=== PATIENT | male | born 1980 | race Caucasian/White ===

== ENCOUNTER → 2018-02-04 14:11 | Outpatient (CLI) | payer OTHER, SELFPAY ==
--- NOTE | 2018-02-04 14:22 | CT_ITS ---
CT abdomen pelvis wo con CLINICAL INDICATION: Flank pain and hematuria ITS.REASON: HEMATURIA ORDERING PHYSICIAN: Edis Grajeda PATIENT AGE: 37 years COMPARISON: None TECHNIQUE: Axial images obtained with sagittal and coronal reformats. All CT scans at the facility use one or more dose reduction, viz: automated exposure control; ma/kV adjustment per patient size (including targeted exams where dose is matched to indication; i.e. head); or iterative reconstruction technique. PROCEDURE: Oral Contrast: None IV Contrast: None . FINDINGS: No acute finding in the lower chest. Diffuse fatty liver. The spleen, adrenal glands pancreas, and gallbladder have an unremarkable appearance. There are 2 nonobstructing stones in the lower pole the right kidney the largest at 4 mm. No hydronephrosis. No ureteral calculi. Mild amount retained colonic feces noted. Unremarkable appendix. No evidence of intestinal obstruction, free air, or diverticulitis. There are scattered small nodes within the mesentery's There is minimal decrease in height anteriorly involving the T11 vertebral body. This is of questionable clinical significance IMPRESSION: 1. Nonobstructing right nephrolithiasis. 2. Otherwise negative CT abdomen pelvis
== END ==
PROVIDERS: Family Provider Internal Medicine; PCP Internal Medicine; Visit Provider Internal Medicine
DX: R31.9 Hematuria, unspecified (principal)
CPT/HCPCS: 74176

== ENCOUNTER 2019-11-27 22:09 | Emergency (ER) | payer OTHER, SELFPAY ==
[2019-11-27 22:10] VITALS: BMI 35.9
[2019-11-27 22:17] VITALS: BP 149/82; PULSE 90; RESP 16; TEMP 36.8; O2SAT 98; BMI 35.9
--- NOTE | 2019-11-27 22:18 | CT_ITS ---
PROCEDURE: CT ABDOMEN PELVIS WO CON CLINICAL INDICATION: left flank pain Left flank pain, abdominal pain [facility] con [facility] 08/16/[facility] TECHNIQUE: Axial images obtained with sagittal and coronal reformats. All CT scans at the facility use one or more dose reduction, viz: automated exposure control, ma/kV adjustment per patient size (including targeted exams where dose is matched to indication, i.e. head), or iterative reconstruction technique. FINDINGS: LOWER THORAX: No acute finding ABDOMEN & PELVIS: Fatty liver. No focal liver lesion is evident. The spleen, adrenal glands, pancreas, and gallbladder have an unremarkable unenhanced appearance. There is a 5 mm stone in the mid polar region of the right kidney. There is mild left hydronephrosis and hydroureter secondary to a 4 mm stone in the mid to lower left ureter at the pelvic inlet at the L5-S1 level. There are scattered small lymph nodes in the mesenteries which is nonspecific. No evidence of appendicitis. There is a mild amount of retained colonic feces and there is mild nonspecific thickening of the descending and sigmoid colon. There is colonic diverticulosis but no evidence of diverticulitis. No intestinal obstruction or free air. No acute bony anomalies. There is a small umbilical hernia which contains fat. IMPRESSION: 1. 4 mm left mid to distal ureteral stone with mild hydroureteronephrosis. 2. Right nephrolithiasis. 3. Scattered nonspecific areas of thickening of the descending and sigmoid colon which could be due to nondistention or colitis. Dictated by: Cooper Davey MD 11/28/2019 09:46 Electronically signed by Cooper Davey MD in [place] 11/28/2019 09:46
[2019-11-27 22:23] LABS: Microscopic, Urine URINE MICROSCOPIC (MICROSCOPIC)
--- NOTE | 2019-11-27 22:23 | PC.NURSE ---
blood sent to lab
[2019-11-27 22:25] LABS: Appearance,Urine CLEAR (Clear); Blood, Urine 3+ (Negative); Glucose,Urine (UA) Negative (Negative); Ketones,Urine Negative (Negative); Leukocyte Esterase,Urine Negative (Negative); Nitrate,Urine Negative (Negative); Protein,Urine 2+ (Negative); Specific Gravity, Urine >= 1.030 (1.005-1.030)
[2019-11-27 22:27] LABS: Basophils % 0.5 % (0.1-2.0); Eosinophils # 0.1 K/mm3 (0.0-0.4); Eosinophils % 1.9 % (0.1-12.0); Lymphocytes # 2.2 K/mm3 (0.7-4.5); Lymphocytes % 30.2 % (10-50); Mean Corpuscular HGB Conc 33.3 g/dL (31.8-35.4); Mean Corpuscular Hemoglobin 27.6 pg (27.0-31.2); Mean Platelet Volume 8.1 fl (7.4-10.4); Monocytes # 0.4 K/mm3 (0.1-1.0); Monocytes % 5.8 % (1.7-9.3); Neutrophils # 4.5 K/mm3 (1.8-7.8); Neutrophils % 61.6 % (37.0-80.0); Platelet Count 240 K/mm3 (142-424); Red Blood Count 5.42 M/mm3 (4.60-6.20); Red Cell Distribution Width 12.9 % (11.5-17.5); White Blood Count 7.3 K/mm3 (4.8-10.8)
--- NOTE | 2019-11-27 22:27 | HMH.EDUROGM ---
ED Disposition Clinical Impression: Renal colic on left side Disposition: Home, Self-Care Condition on Discharge: Good Instructions: DI for Kidney Stones Additional Instructions: fluids and see pcp for follow up and urology Prescriptions: Ketorolac Tromethamine [Toradol 10mg tablet] 10 mg PO Q6H 3 Days #12 tab Transmission Status: Pending to [facility] #[id number] Referrals: Edis Grajeda [Primary Care Provider] - Quirino Soria MD [Staff Physician] - - Critical Care Critical Care Time: No Attestation: On 11/27/19, the high probability of a clinically significant, sudden or life threatening deterioration of the following system(s) required my full and direct attention, intervention and personal management. The time I documented below is in addition to time spent performing reported procedures but includes the following listed in this critical care notation. Medical Decision Making - Medical Records Medical records reviewed: Yes: I reviewed the patient's medical records. - Clarence Inquiry Pt receiving controlled substance: No Vital Signs: 11/27/19 22:17 Temperature 98.2 F Temperature Source Oral Pulse Rate [Right Brachial] 90 Respiratory Rate 16 Blood Pressure [Right Arm] 149/82 H Blood Pressure Mean [Right Arm] 104 Blood Pressure Source [Right Arm] Automatic Cuff Blood Pressure Position [Right Arm] Sitting 02 Sat by Pulse Oximetry 98 Oxygen Delivery Method Room Air - Lab Data Lab results reviewed: Yes: I reviewed the patient's lab results. Lab Results 11/27/19 22:15: WBC 7.3, RBC 5.42, Hgb 15.0, Hct 45.0, MCV 83.0, MCH 27.6, MCHC 33.3, RDW 12.9, Plt Count 240, MPV 8.1, Neut % (Auto) 61.6, Lymph % (Auto) 30.2, [place] % (Auto) 5.8, Eos % (Auto) 1.9, Baso % (Auto) 0.5, Neut # (Auto) 4.5, Lymph # (Auto) 2.2, [place] # (Auto) 0.4, Eos # (Auto) 0.1, Baso # (Auto) 0.0 11/27/19 22:15: Sodium 142, Potassium 3.8, Chloride 101, Carbon Dioxide 31 H, Anion Gap 13.8, BUN 14, Creatinine 0.80, Estimated Creat Clear 197, Estimated GFR 107, Est GFR ( Amer) 130, Glucose 103 H, Calcium 10.7 H, Total Bilirubin 0.4, AST 40, ALT 50, Alkaline Phosphatase 97, Total Protein 8.4 H, Albumin 4.9, Globulin 3.5 H, Albumin/Globulin Ratio 1.4, Amylase 76, Lipase 167 11/27/19 22:16: Urine Color Dark yellow, Urine Appearance Clear, Urine pH 6.0, Ur Specific Britton >= 1.030, Urine Protein 2+, Urine Glucose (UA) Negative, Urine Ketones Negative, Urine Blood 3+, Urine Nitrate Negative, Urine Bilirubin Negative, Urine Urobilinogen 4.0, Ur Leukocyte Esterase Negative, Urine RBC 20-50, Urine WBC Occasional, Ur Squamous Epith Cells Occasional, Urine Bacteria Trace Result diagrams: 11/27/19 22:15 11/27/19 22:15 Orders (Tests/Meds): ED MEDICATIONS Generic Name Dose Route Start Last Admin Trade Name Freq PRN Reason Stop Dose Admin Sodium Chloride 1,000 mls @ 999 mls/hr 11/27/19 22:30 11/27/19 22:24 Sod Chlor 0.9% 1000ml Bag IV 11/27/19 23:30 999 mls/hr .Q1H1M FAREED Administration Discontinued Medications Generic Name Dose Route Start Last Admin Trade Name Freq PRN Reason Stop Dose Admin Ketorolac Tromethamine 30 mg 11/27/19 22:19 11/27/19 22:23 Toradol 30mg/Ml Vial IV 11/27/19 22:20 30 mg ONCE ONE Administration Ondansetron HCl 4 mg 11/27/19 22:19 11/27/19 22:23 Zofran 4mg/2ml Vial IV 11/27/19 22:20 4 mg ONCE ONE Administration ORDERS Category Date Time Status CT abdomen pelvis wo con Stat Cat Scan 11/27/19 22:18 Ordered - CT Data CT Scan: Abdomen, Pelvis Time Received: 00:[address] Reviewed: Yes: I have viewed the radiologist's interpretation Preliminary Findings: Abnormal (lt renal stone 4 mm) - Reevaluation(s) Time: 00:07 Reevaluation #1: doing better - wants to try at home Medical Decision Narrative: acute flank pain with hx of renal stones - but will need ct to exclude dx of aaa or bowel disease Male Urogenital HPI - General Chief complaint: Urogen
[2019-11-27 22:29] LABS: Bacteria,Urine Trace /lpf; Bilirubin,Urine Negative (Negative); RBC,Urine 20-50 #/hpf (0-3); Squamous Epithelial Cell,Urine Occasional #/hpf (0-5); WBC,Urine Occasional #/hpf (0-3)
[2019-11-27 22:30] LABS: Color,Urine Dark Yellow (Yellow)
[2019-11-27 22:35] LABS: Chloride 101 mmol/L (98-107); Potassium 3.8 mmoL/L (3.5-5.1); Sodium 142 mmol/L (136-145)
[2019-11-27 22:37] LABS: Alanine Aminotransferase 50 U/L (12-78); Amylase 76 U/L (30-110); Aspartate Amino Transferase 40 U/L (17-59); Bilirubin,Total 0.4 mg/dl (0.2-1.3); Blood Urea Nitrogen 14 mg/dl (9-20); Creatinine Clearance Estimated 197 mL/min (50-200); Estimated Glomerular Filt Rate 107 ml/min (>60); GFR (African American) 130 ML/MIN (>60)
[2019-11-27 22:38] LABS: Albumin Level 4.9 g/dl (3.5-5.0); Albumin/Globulin Ratio 1.4 (1.1-1.8); Alkaline Phosphatase 97 U/L (38-126); Anion Gap 13.8 mEq/L (5-15); Calcium 10.7 mg/dl (8.4-10.2); Carbon Dioxide 31 mmol/L (22.0-30.0); Globulin 3.5 g/dL (1.3-3.2); Glucose 103 mg/dl (74-100); Lipase 167 U/L (23-300); Total Protein,Serum 8.4 g/dl (6.3-8.2)
[2019-11-27 23:10] VITALS: BP 138/76; PULSE 80; RESP 16; O2SAT 97
--- NOTE | 2019-11-27 23:33 | PC.NURSE ---
pt returns from radiology
[2019-11-28 00:13] VITALS: BP 134/74; PULSE 74; RESP 16; TEMP 36.8; O2SAT 96
== END 2019-11-28 00:22 | disposition home or self-care (01) ==
PROVIDERS: Emergency Provider Emergency Medicine; PCP Internal Medicine
DX: N23 Unspecified renal colic (principal); Z87.442 Personal history of urinary calculi; Z87.891 Personal history of nicotine dependence
CPT/HCPCS: 74176; 80053; 81001; 82150; 83690; 85025; 96365; 96375; 99283; J2405

== ENCOUNTER → 2019-12-16 14:09 | Outpatient (CLI) | payer OTHER, SELFPAY ==
[2019-12-26 17:28] LABS: Composition SEE BELOW:; Specimen Type NOT PROVIDED
[2019-12-26 17:29] LABS: Ca oxalate dihydrate 20%
[2019-12-26 17:30] LABS: Photo TO FOLLOW
== END ==
PROVIDERS: Visit Provider Urology
DX: N20.0 Calculus of kidney (principal)
CPT/HCPCS: 82370

== ENCOUNTER 2021-04-03 09:27 | Emergency (ER) | payer OTHER, SELFPAY ==
[2021-04-03 10:28] VITALS: BP 138/89; PULSE 77; RESP 19; TEMP 37.1; O2SAT 99; BMI 38.3
[2021-04-03 10:33] VITALS: BP 138/89; PULSE 77; RESP 18; TEMP 37.2
--- NOTE | 2021-04-03 10:45 | HMH.EDUTC ---
[facility] [place] Disposition Clinical Impression: Exposure to COVID-19 virus Disposition: Home, Self-Care Condition on Discharge: Good Instructions: Preventing the Spread of Coronavirus Discharge Instructions Additional Instructions: You have been tested for COVID19. Please isolate as if you are positive until test results received. Referrals: Edis Grajeda [Primary Care Provider] - Forms: Work/School Release Time of Disposition: 10:50 Medical Decision Making - Clarence Inquiry Pt receiving controlled substance: No Vital Signs: 04/03/21 10:28 04/03/21 10:33 Temperature 98.8 F 98.9 F Temperature Source Oral Pulse Rate 77 Pulse Rate [Left] 77 Respiratory Rate 19 18 Blood Pressure 138/89 Blood Pressure [Right Arm] 138/89 Blood Pressure Mean [Right Arm] 105 02 Sat by Pulse Oximetry 99 [facility] [place] HPI - General Stated complaint: covid exposure, no symptoms Time Seen by Provider: 04/03/21 10:45 Mode of Arrival: Ambulatory Source of Information: Patient Limitations: No Limitations Description of Symptoms (Recalled from Triage Doc. by RN): pt needs covid test for work. HEENT Symptoms (Recalled from RN notes): No Resp Symptoms (Recalled from RN notes): No Skin Symptoms (Recalled from RN notes): No MS Symptoms (Recalled from RN notes): No Functional Status (Recalled from RN notes): na - History of Present Illness Provider Complaint: 2 coworkers tested positive for COVID and he had a low grade fever (100.5) yesterday so work asked that he be tested. He feels better today and has no other symptoms. Onset (ago): day(s) (1) Relieving factors: none Exacerbating factors: none Associated symptoms: fever/chills Treatments prior to arrival: none - Related Data Home Medications Medication Instructions Recorded Confirmed Buprenorphine HCl/Naloxone HCl 1 each SL DAILY 08/16/18 12/16/19 [Suboxone 8 mg-2 mg Sl Film] Tamsulosin HCl [Flomax 0.4mg 0.4 mg PO HS 08/16/18 12/16/19 capsule] Venlafaxine HCl [Effexor XR 75mg 75 mg PO DAILY 08/16/18 12/16/19 capsule] Previous Rx's Medication Instructions Recorded Ketorolac Tromethamine [Toradol 10 mg PO Q6H 3 Days #12 tab 11/28/19 10mg tablet] Allergies Allergy/AdvReac Type Severity Reaction Status Date / Time No Known Allergies Allergy Verified 12/16/19 09:03 - Worker's Comp Is this a Worker's Comp case?: No [facility] History - Hepatitis A Screen Drug use history?: No High risk sexual behaviors?: No History of sexually transmitted infection?: No Currently employed?: No Childcare worker?: No Do you have indoor plumbing?: Yes Do you have electricity?: Yes Attestation statement:: This patient has been screened for Hepatitis A risk factors. I have reviewed the patient's past medical history: Yes Medical History: Reports:: Kidney Stones Denies:: Diabetes Mellitus Type 1, Diabetes Mellitus Type 2 Other Surgeries: Yes: No Previous Surgery Amputation: No Fractures: No - Social History Smoking Status: Former smoker Alcohol Intake: never Substance Use Type: denies use Occupational Status: employed Family Hx:: No significant family history ROS Obtained: Yes All systems reviewed & no additional complaints - Constitutional Constitutional: Reports fever(s) Physical Exam - General General appearance: alert, in no apparent distress - Head Head exam: normocephalic - ENT ENT exam: Present: normal oropharynx, TM's normal bilaterally - Neck Neck exam: Present: normal inspection. Absent: lymphadenopathy - Chest Chest inspection: Present: normal inspection, symmetric chest wall rise - Respiratory Respiratory exam: Present: normal lung sounds bilaterally - Cardiovascular Cardiovascular exam: Present: regular rate, normal rhythm - Neurological Exam Neurological exam: Present: alert, oriented X3 - Psychiatric Psychiatric exam: Present: normal affect, normal mood - Skin Skin exam: Present: warm, dry
== END 2021-04-03 11:20 | disposition home or self-care (01) ==
PROVIDERS: Emergency Provider Physician Assistant; PCP Internal Medicine
DX: U07.1 COVID-19 (principal)
CPT/HCPCS: 99202; G0463; U0003

== ENCOUNTER → 2021-05-23 12:03 | Outpatient (CLI) | payer OTHER, SELFPAY ==
[2021-05-23 12:40] LABS: Basophils % 0.4 % (0.1-2.0); Eosinophils # 0.1 K/mm3 (0.0-0.4); Eosinophils % 1.7 % (0.1-12.0); Hemoglobin 15.2 g/dL (14.1-18.0); Lymphocytes # 2.3 K/mm3 (0.7-4.5); Lymphocytes % 28.7 % (10-50); Mean Corpuscular HGB Conc 32.4 g/dL (31.8-35.4); Mean Corpuscular Hemoglobin 27.7 pg (27.0-31.2); Mean Corpuscular Volume 85.8 fl (80-94); Mean Platelet Volume 7.5 fl (7.4-10.4); Monocytes # 0.6 K/mm3 (0.1-1.0); Monocytes % 6.9 % (1.7-9.3); Neutrophils # 5.1 K/mm3 (1.8-7.8); Neutrophils % 62.3 % (37.0-80.0); Platelet Count 207 K/mm3 (142-424); Red Blood Count 5.49 M/mm3 (4.60-6.20); Red Cell Distribution Width 13.4 % (11.5-17.5); White Blood Count 8.1 K/mm3 (4.8-10.8)
[2021-05-23 13:14] LABS: Chloride 101 mmol/L (98-107); Potassium 4.3 mmoL/L (3.5-5.1); Sodium 143 mmol/L (136-145)
[2021-05-23 13:16] LABS: Blood Urea Nitrogen 11 mg/dl (9-20); Estimated Glomerular Filt Rate 148 ml/min (>60); GFR (African American) 180 ML/MIN (>60)
[2021-05-23 13:17] LABS: Alanine Aminotransferase 41 U/L (12-78); Albumin Level 4.8 g/dl (3.5-5.0); Albumin/Globulin Ratio 1.4 (1.1-1.8); Alkaline Phosphatase 97 U/L (38-126); Anion Gap 17.3 mEq/L (5-15); Aspartate Amino Transferase 38 U/L (17-59); Bilirubin,Total 0.5 mg/dl (0.2-1.3); Calcium 10.1 mg/dl (8.4-10.2); Carbon Dioxide 29 mmol/L (22.0-30.0); Chol/HDL Ratio 6.7 (1-3.5); Cholesterol 247 mg/dl (140-200); Globulin 3.5 g/dL (1.3-3.2); Glucose 105 mg/dl (74-100); HDL Cholesterol 37 mg/dl (40-60); Total Protein,Serum 8.3 g/dl (6.3-8.2); Triglycerides 318 mg/dl (30-150); VLDL Cholesterol 64 mg/dL (0-40)
[2021-05-23 13:48] LABS: Thyroid Stimulating Hormone 4.26 uIU/mL (0.465-4.68)
[2021-05-27 12:26] LABS: Testosterone,Free 1.5 pg/mL (6.8-21.5)
== END ==
LOC: LAB 12:04
PROVIDERS: Visit Provider Internal Medicine
DX: F41.9 Anxiety disorder, unspecified (principal); R53.83 Other fatigue; E29.1 Testicular hypofunction
CPT/HCPCS: 36415; 80053; 80061; 84402; 84443; 85025

== ENCOUNTER → 2021-08-24 16:16 | Outpatient (CLI) | payer OTHER, SELFPAY ==
[2021-08-26 08:52] LABS: FSH 2.2 mIU/mL (1.5-12.4); Prolactin 8.8 ng/mL (4.0-15.2)
[2021-08-27 16:10] LABS: Testosterone,Free 0.7 pg/mL (6.8-21.5)
== END ==
LOC: LAB 16:17
PROVIDERS: PCP Internal Medicine; Visit Provider Internal Medicine
DX: E29.1 Testicular hypofunction (principal)
CPT/HCPCS: 36415; 83001; 83002; 84146; 84402

== ENCOUNTER → 2022-07-07 17:00 | Outpatient (CLI) | payer OTHER, SELFPAY ==
[2022-07-07 19:26] LABS: Basophils # 0.1 K/mm3 (0-0.2); Basophils % 0.6 % (0.1-2.0); Eosinophils # 0.2 K/mm3 (0.0-0.4); Eosinophils % 2.2 % (0.1-12.0); Hematocrit 44.6 % (42.0-52.0); Hemoglobin 14.5 g/dL (14.1-18.0); Lymphocytes % 37.6 % (10-50); Mean Corpuscular HGB Conc 32.5 g/dL (31.8-35.4); Mean Corpuscular Hemoglobin 27.2 pg (27.0-31.2); Mean Corpuscular Volume 83.7 fl (80-94); Mean Platelet Volume 8.6 fl (7.4-10.4); Monocytes # 0.5 K/mm3 (0.1-1.0); Monocytes % 6.8 % (1.7-9.3); Neutrophils # 4.2 K/mm3 (1.8-7.8); Neutrophils % 52.8 % (37.0-80.0); Platelet Count 252 K/mm3 (142-424); Red Blood Count 5.33 M/mm3 (4.60-6.20); Red Cell Distribution Width 13.9 % (11.5-17.5)
[2022-07-07 20:54] LABS: Alanine Aminotransferase 42 U/L (12-78); Albumin Level 4.7 g/dl (3.5-5.0); Albumin/Globulin Ratio 1.6 (1.1-1.8); Alkaline Phosphatase 107 U/L (38-126); Anion Gap 13.4 mEq/L (5-15); Aspartate Amino Transferase 34 U/L (17-59); Bilirubin,Total 0.4 mg/dl (0.2-1.3); Blood Urea Nitrogen 16 mg/dl (9-20); Calcium 10.1 mg/dl (8.4-10.2); Carbon Dioxide 31 mmol/L (22.0-30.0); Chloride 103 mmol/L (98-107); Estimated Glomerular Filt Rate 123 ml/min (>60); GFR (African American) 149 ML/MIN (>60); Globulin 2.9 g/dL (1.3-3.2); Glucose 77 mg/dl (74-100); Potassium 4.4 mmoL/L (3.5-5.1); Sodium 143 mmol/L (136-145); Total Protein,Serum 7.6 g/dl (6.3-8.2)
[2022-07-13 08:21] LABS: Testosterone,Total 83 ng/dL (264-916)
== END ==
PROVIDERS: PCP Internal Medicine; Visit Provider Internal Medicine
DX: F41.9 Anxiety disorder, unspecified (principal); F33.0 Major depressive disorder, recurrent, mild; E29.1 Testicular hypofunction
CPT/HCPCS: 80053; 84403; 85025

== ENCOUNTER → 2022-08-29 17:01 | Outpatient (CLI) | payer OTHER, SELFPAY ==
[2022-08-31 08:45] LABS: Testosterone,Total 179 ng/dL (264-916)
== END ==
PROVIDERS: PCP Internal Medicine; Visit Provider Internal Medicine
DX: E29.1 Testicular hypofunction (principal)
CPT/HCPCS: 84403

== ENCOUNTER → 2023-01-02 17:00 | Outpatient (CLI) | payer OTHER, SELFPAY ==
[2023-01-02 17:35] LABS: Basophils % 0.2 % (0.1-2.0); Eosinophils # 0.2 K/mm3 (0.0-0.4); Eosinophils % 2.4 % (0.1-12.0); Hematocrit 45.6 % (42.0-52.0); Hemoglobin 14.9 g/dL (14.1-18.0); Lymphocytes # 2.2 K/mm3 (0.7-4.5); Lymphocytes % 30.8 % (10-50); Mean Corpuscular HGB Conc 32.7 g/dL (31.8-35.4); Mean Corpuscular Hemoglobin 26.8 pg (27.0-31.2); Mean Corpuscular Volume 81.9 fl (80-94); Mean Platelet Volume 7.8 fl (7.4-10.4); Monocytes # 0.5 K/mm3 (0.1-1.0); Monocytes % 7.2 % (1.7-9.3); Neutrophils # 4.2 K/mm3 (1.8-7.8); Neutrophils % 59.3 % (37.0-80.0); Platelet Count 223 K/mm3 (142-424); Red Blood Count 5.56 M/mm3 (4.60-6.20); Red Cell Distribution Width 13.9 % (11.5-17.5); White Blood Count 7.1 K/mm3 (4.8-10.8)
[2023-01-02 17:55] LABS: Alanine Aminotransferase 43 U/L (12-78); Albumin Level 4.7 g/dl (3.5-5.0); Albumin/Globulin Ratio 1.7 (1.1-1.8); Alkaline Phosphatase 76 U/L (38-126); Anion Gap 14.1 mEq/L (5-15); Aspartate Amino Transferase 42 U/L (17-59); Bilirubin,Total 0.5 mg/dl (0.2-1.3); Blood Urea Nitrogen 12 mg/dl (9-20); Calcium 9.6 mg/dl (8.4-10.2); Carbon Dioxide 31 mmol/L (22.0-30.0); Chloride 102 mmol/L (98-107); Chol/HDL Ratio 6.7 (1-3.5); Cholesterol 234 mg/dl (140-200); Estimated Glomerular Filt Rate 92 ml/min (>60); GFR (African American) 111 ML/MIN (>60); Globulin 2.7 g/dL (1.3-3.2); Glucose 87 mg/dl (74-100); HDL Cholesterol 35 mg/dl (40-60); Potassium 4.1 mmoL/L (3.5-5.1); Sodium 143 mmol/L (136-145); Total Protein,Serum 7.4 g/dl (6.3-8.2); Triglycerides 356 mg/dl (30-150); VLDL Cholesterol 71 mg/dL (0-40)
[2023-01-02 18:06] LABS: Direct LDL Cholesterol 136.27 mg/dL (100-129)
[2023-01-04 08:21] LABS: Testosterone,Total 622 ng/dL (264-916)
== END ==
LOC: LAB.DROPOF 17:01
PROVIDERS: PCP Internal Medicine; Visit Provider Internal Medicine
DX: F34.1 Dysthymic disorder (principal); F41.9 Anxiety disorder, unspecified; E29.1 Testicular hypofunction; E78.5 Hyperlipidemia, unspecified
CPT/HCPCS: 80053; 80061; 84403; 85025

== ENCOUNTER → 2023-07-04 17:06 | Outpatient (CLI) | payer OTHER, SELFPAY ==
[2023-07-04 18:05] LABS: Alanine Aminotransferase 45 U/L (12-78); Albumin Level 4.8 g/dl (3.5-5.0); Albumin/Globulin Ratio 1.6 (1.1-1.8); Alkaline Phosphatase 73 U/L (38-126); Anion Gap 10.1 mEq/L (5-15); Aspartate Amino Transferase 43 U/L (17-59); Bilirubin,Total 0.5 mg/dl (0.2-1.3); Blood Urea Nitrogen 13 mg/dl (9-20); Calcium 9.3 mg/dl (8.4-10.2); Carbon Dioxide 34 mmol/L (22.0-30.0); Chloride 99 mmol/L (98-107); Chol/HDL Ratio 7.3 (1-3.5); Cholesterol 220 mg/dl (140-200); Estimated Glomerular Filt Rate 92 ml/min (>60); GFR (African American) 111 ML/MIN (>60); Glucose 87 mg/dl (74-100); HDL Cholesterol 30 mg/dl (40-60); Potassium 4.1 mmoL/L (3.5-5.1); Sodium 139 mmol/L (136-145); Total Protein,Serum 7.8 g/dl (6.3-8.2); Triglycerides 291 mg/dl (30-150); VLDL Cholesterol 58 mg/dL (0-40)
[2023-07-04 18:14] LABS: Direct LDL Cholesterol 136.85 mg/dL (100-129)
[2023-07-06 09:13] LABS: Testosterone,Total 377 ng/dL (264-916)
== END ==
LOC: LAB.DROPOF 17:07
PROVIDERS: PCP Internal Medicine; Visit Provider Internal Medicine
DX: E29.1 Testicular hypofunction (principal); F41.9 Anxiety disorder, unspecified; F33.0 Major depressive disorder, recurrent, mild
CPT/HCPCS: 80053; 80061; 84403

== ENCOUNTER 2024-02-18 17:02 | Outpatient (CLI) | payer OTHER, SELFPAY ==
--- NOTE | 2024-02-18 17:05 | XR_ITS ---
PROCEDURE INFORMATION: Exam: XR Left Shoulder Exam date and time: 02/18/2024 5:07 PM Age: 43 years old Clinical indication: Pain; Shoulder; Left; Additional info: Fall from ladder February 07, left shoulder pain TECHNIQUE: Imaging protocol: Radiologic exam of the left shoulder. Views: 2 or more views. COMPARISON: No relevant prior studies available. FINDINGS: Bones/joints: 15 mm avulsion fracture fragment from the greater tuberosity is in near anatomic alignment. No other fractures, dislocations, or focal bone lesions. Soft tissues: No soft tissue abnormalities or radiopaque foreign bodies. No soft tissue gas. IMPRESSION: Acute, nondisplaced, avulsion fracture the left greater tuberosity.
== END 2024-02-18 23:59 | disposition home or self-care (01) ==
LOC: RAD 17:03
PROVIDERS: PCP Internal Medicine; Visit Provider Internal Medicine
DX: M25.512 Pain in left shoulder (principal)
CPT/HCPCS: 73030

== ENCOUNTER 2024-03-12 14:40 | Outpatient (CLI) | payer BC, SELFPAY ==
--- NOTE | 2024-03-12 14:44 | XR_ITS ---
FINAL REPORT CLINICAL HISTORY: lt humerus fx fall COMPARISON: 02/18/2024 FINDINGS: Left humerus Two views were obtained. The orientation of the humerus is somewhat different. Again identified is a comminuted fracture of the greater tuberosity. There is probably no significant change. There is mild AC joint degenerative change. IMPRESSION: Fracture as above. Reviewed, Interpreted and Dictated by Jignesh Schmidt III, MD Transcribed by Peggy Campbell Authenticated and [facility]
== END 2024-03-12 23:59 | disposition home or self-care (01) ==
LOC: RAD 14:41
PROVIDERS: PCP Internal Medicine; Visit Provider Orthopaedic Surgery
DX: M79.622 Pain in left upper arm (principal); S42.302A Unspecified fracture of shaft of humerus, left arm, initial encounter for closed fracture
CPT/HCPCS: 73060

== ENCOUNTER 2024-03-24 13:59 | Outpatient (CLI) | payer BC, SELFPAY ==
--- NOTE | 2024-03-24 14:04 | MR_ITS ---
FINAL REPORT CLINICAL HISTORY: Lt Shoulder Pain, fell off ladder. pain in joint FINDINGS: Multi planar MR imaging of the left shoulder was performed. The supraspinatus tendon appears intact. Fluid is seen within the subacromial/subdeltoid bursa which may be related to posttraumatic bursitis. Anterior labrum is irregular with linear defect consistent with anterior labral tear best seen on images 11 and 12 of series 3. The biceps tendon appears intact. The acromioclavicular joint appears intact. There is extensive marrow edema throughout the greater tuberosity like related to osseous contusion. IMPRESSION: Marrow edema in the greater tuberosity likely related to contusion. Anterior labral tear. Reviewed, Interpreted and Dictated by Indra Stratton MD Transcribed by Dolores Sorto Authenticated and [facility]
== END 2024-03-24 23:59 | disposition home or self-care (01) ==
LOC: RAD 14:01
PROVIDERS: PCP Internal Medicine; Visit Provider Orthopaedic Surgery
DX: M25.512 Pain in left shoulder (principal)
CPT/HCPCS: 73221

== ENCOUNTER 2024-12-31 13:44 | Outpatient (CLI) | payer BC, SELFPAY ==
--- OUTSIDE RECORDS SUMMARY | 2024-12-31 13:47 | XMS_ITS | Data Portability ---
Author Organization [facility] [place] [facility] Address [address] [place] [address] Assessment No assessment recorded. Plan of Treatment Reminders Order Date Submit Date Provider Last Modified By Organization Details Last Modified Time Details Appointments None record ed. Lab None record ed. Referral None record ed. Procedures None record ed. Surgeries None record ed. Imaging None record ed. Medication Orders None record ed. Patient TargetsNo targets recorded. Patient Instructions Encounter Date Encounter Id Patient Instructions Last Modified By Organization Details Last Modified Time 08/23/2018 [id number] kidney stone: care instructions [email or web address] Not available 08/31/2018 15:28:57 Reason for Referral None Reported. Results Created Date Observation Date Name Description Value Unit Range Abnormal Flag Note LastModifiedBy Organization Detail LastModifiedTime 08/23/19 19 08/23/2018 XR, abdom en, 1 view [facility] [address] [place] [address] Patideana t Name: SKYLER VALERIO JR Briana shrestha : [phone] Patideana t Orderi ng Provid er: ROLY HANCOCK EXAM DATE: 2018 EXAM: XR ABDOME N [facility] INFORM ATION: Histor y of urinar y tract stones . IMAGES PROVID ED: KUB AP radiog raphic images of the abdome n. COMPAR LAXMI: None. FINDIN GS AND IMPRES GLENNY: There is a 4 mm diamet er calcif icatio n in the region of the right mid ureter betwee n the right L4 and L5 transv erse proces ses. Calcif ied phlebo liths are seen in the pelvis . No other signif icant abnorm ality. Interp reted By: Dunia Wong MD Electr onical ly Signed By: Dunia Wong MD on 019 4:14 PM [email or web address] [facility] [employer] [address], [place], [address], 08/28/2018 17:17:38 Result Notes None recorded. Problems No Known Problems Medical Equipment None Reported. Allergies No known drug allergies Medications Name Sig Start Date Stop Date Status Note LastModified by Organization Details LastModified Time Effexor XR 75 mg capsule,exte nded release Take 1 capsule every day by oral route. active Not Available Not Available No t Available oxycodone-ac etaminophen 10 mg-325 mg tablet 08/23 completed Not Available Not Available Not Available tamsulosin 0.4 mg capsule 08/23 completed Not Available Not Available Not Available ondansetron 4 mg disintegrati ng tablet 08/23 completed Not Available Not Available Not Available buprenorphin e 8 mg-naloxone 2 mg sublingual tablet 08/23 completed Not Available Not Available Not Available Suboxone 8 mg-2 mg sublingual film 08/23 completed Not Available Not Available Not Available Vitals Date Recorded Body height Body mass index (BMI) Body weight Provider Name and Address Organization Details Last Updated DateTime 08/23/2018 177.8 cm 35.9 kg/m2 576723.09 g Saniya Martell [facility] 08/23/2018 14:46:54 Social History Question Answer Notes LastModified by Organizat ion Details LastModified Time Tobacco Smoking Status Former Smoker Saniya Martell null, [facility] 08/23/2018 14:48:57 Marital Status Single Informatio n not available 08/23/2018 What Was The Date Of Your Most Recent Tobacco Screening? 08/23/2018 Information n ot available 09/23/2019 Sex: Unknown Functional Status Question Answer Note LastModified by Organizat ion Details LastModified Time What is your level of alcohol consumption? 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 Family History Relationship Description Onset Age of this Age Resolved Age Notes LastModified by Organization Details LastModified Time Father Malignant neoplasm of prostate Not available 2018 14:48:44 Brother Malignant neoplasm of prostate Not available 2018 14:48:44 Maternal Uncle Malignant neoplasm of prostate Not available 2018 14:48:44 Paternal Grandfather Malignant neoplasm of prostate Not available 2018 14:48:44 Mother Family history of malignant neoplasm Not available 2018 14:48:50 Medical History Condition Response Kidney Stones Y Depression Y Anxiety Disorder Y Past Encounters Encounter ID Performer Location Encounter Start Date Encounter Closed Date Diagnosis/Indication Diagnosis SNOMED-CT Code Diagnosis ICD10 Code Diagnosis Note [id number] LUIS HANCOCK MD UROLOGY [facility] [address] [place] [address] 08/23/2018 14:10:33 09/01/2018 14:29:20 Ureteric stone 73622139 N20.1 kUB shows stone in mid R ureter. Discussed options. He want to try and pass. F/u one week Health Concerns Section Related Observation LastModified by Organization Detai ls LastModified Time None Recorded Concern Status LastModified by Organization Details LastModified Time None Recorded Advance Directives Directive None Recorded Payers Insurance Date Sequence Insurance Name Policy Number Policy Gibson Covered Member ID Gibson Member ID Guarantor Name 06/30/2020 1 [employer] (POS) [id number] Skyler Baer [id number] Skyler Baer 06/30/2020 1 [facility] [employer] PLAN (PPO) [id number] Skyler Baer [id number] Skyler Baer Notes Date Note Type Note Provider Name and Address Organization Details Recorded Time 08/23/2018 text/html 38 y/o male here today with c/o a kidney stone. He states he went to [facility] with c/o gross hematuria, vomiting, and R flank pain. He states he had a CT scan which showed a 6mm stone in his R ureter. He does have a prior h/o kidney stones. He has not yet passed the stone. He denies fever/chills. LUIS HANCOCK MD [address] [place] [address], [phone], [facility] 08/31/2018 15:30:18
[2024-12-31 18:30] LABS: Albumin Level 4.7 g/dl (3.5-5.0); Basophils % 0.4 % (0.1-2.0); Chloride 103 mmol/L (98-107); Eosinophils # 0.1 Kmm3 (0.0-0.4); Eosinophils % 1.4 % (0.1-12.0); Hematocrit 53.7 % (42.0-52.0); Immature Granulocytes # 0.03 10^3uL; Immature Granulocytes % 0.4 %; Lymphocytes # 2.3 K/mm3 (0.7-4.5); Lymphocytes % 33.1 % (10-50); Mean Corpuscular HGB Conc 31.7 g/dL (31.8-35.4); Mean Corpuscular Hemoglobin 26.9 pg (27.0-31.2); Mean Corpuscular Volume 84.8 fl (80-94); Mean Platelet Volume 9.4 fl (7.4-10.4); Monocytes # 0.5 K/mm3 (0.1-1.0); Monocytes % 7.1 % (1.7-9.3); Neutrophils # 4.1 K/mm3 (1.8-7.8); Neutrophils % 57.6 % (37.0-80.0); Nucleated Red Blood Cells # 0 10^3/uL; Nucleated Red Blood Cells % 0 %; Platelet Count 204 K/mm3 (142-424); Red Blood Count 6.33 M/mm3 (4.60-6.20); Red Cell Distribution Width 13.6 % (11.5-17.5); Red Cell Distribution Width-SD 41.9 fL; Sodium 142 mmol/L (136-145)
[2024-12-31 18:31] LABS: Potassium 4.3 mmoL/L (3.5-5.1)
[2024-12-31 18:33] LABS: Alanine Aminotransferase 31 U/L (12-78); Albumin/Globulin Ratio 1.7 (1.1-1.8); Alkaline Phosphatase 73 U/L (38-126); Anion Gap 11.3 mEq/L (5-15); Aspartate Amino Transferase 29 U/L (17-59); Bilirubin,Total 0.6 mg/dl (0.2-1.3); Blood Urea Nitrogen 12 mg/dl (9-20); Carbon Dioxide 32 mmol/L (22.0-30.0); Estimated Glomerular Filt Rate 105 ml/min (>60); GFR (African American) 126 ML/MIN (>60); Globulin 2.8 g/dL (1.3-3.2); Total Protein,Serum 7.5 g/dl (6.3-8.2)
[2024-12-31 18:34] LABS: Calcium 9.7 mg/dl (8.4-10.2); Chol/HDL Ratio 7.2 (1-3.5); Cholesterol 246 mg/dl (140-200); Glucose 99 mg/dl (74-100); HDL Cholesterol 34 mg/dl (40-60); Triglycerides 201 mg/dl (30-150); VLDL Cholesterol 40 mg/dL (0-40)
[2024-12-31 18:45] LABS: Direct LDL Cholesterol 158.87 mg/dL (100-129)
[2024-12-31 18:58] LABS: Hemoglobin A1C 5.2 % (4.0-6.0)
[2024-12-31 19:04] LABS: Thyroid Stimulating Hormone 1.33 uIU/mL (0.465-4.68)
[2025-01-02 05:29] LABS: Testosterone,Total 305 ng/dL (264-916)
== END 2024-12-31 23:59 | disposition home or self-care (01) ==
LOC: LAB 13:45
PROVIDERS: PCP Internal Medicine; Visit Provider Internal Medicine
DX: E78.5 Hyperlipidemia, unspecified (principal); F32.9 Major depressive disorder, single episode, unspecified; H53.8 Other visual disturbances; R03.0 Elevated blood-pressure reading, without diagnosis of hypertension; R79.89 Other specified abnormal findings of blood chemistry; R63.5 Abnormal weight gain; R60.9 Edema, unspecified
CPT/HCPCS: 36415; 80053; 80061; 83036; 84403; 84443; 85025

== ENCOUNTER 2025-07-15 07:50 | Emergency (ER) | payer SELFPAY ==
[2025-07-15] VITALS (12 sets, daily range): BP systolic 135–178; BP diastolic 97–140; PULSE 97–110; RESP 14–18; TEMP 36.9–37; O2SAT 94–98; BMI 37.3
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
[2025-07-15 08:32] LABS: Microscopic, Urine URINE MICROSCOPIC (MICROSCOPIC)
[2025-07-15 08:35] LABS: Bilirubin,Urine Negative (Negative); Color,Urine YELLOW (Yellow); Glucose,Urine (UA) Negative (Negative); Ketones,Urine Negative (Negative); Leukocyte Esterase,Urine Negative (Negative); PH,Urine 5.5 (5.0-8.5); Protein,Urine 1+ (Negative); Urobilinogen,Urine 0.2 EU/dl (0.2)
[2025-07-15 08:37] LABS: Specific Gravity, Urine 1.030 (1.005-1.030)
[2025-07-15 08:44] LABS: Hematocrit 56.2 % (42.0-52.0); Immature Granulocytes % 0.3 %; Mean Corpuscular HGB Conc 32.2 g/dL (31.8-35.4); Mean Corpuscular Hemoglobin 26.7 pg (27.0-31.2); Mean Corpuscular Volume 82.8 fl (80-94); Nucleated Red Blood Cells % 0 %; Platelet Count 221 K/mm3 (142-424); Red Blood Count 6.79 M/mm3 (4.60-6.20); Red Cell Distribution Width-SD 41.9 fL; White Blood Count 10.5 K/mm3 (4.8-10.8)
[2025-07-15] MEDS: ONDANSETRON 4MG/2ML VIAL 4 MG IV (08:48)
[2025-07-15] MEDS: MORPHINE 4MG/ML SYRINGE 4 MG IV (08:48)
[2025-07-15] MEDS: ACETAMINOPHEN 500MG TAB 1000 MG PO (08:48)
[2025-07-15] MEDS: METHOCARBAMOL 500MG TABLET 1000 MG PO (08:48)
[2025-07-15] MEDS: SODIUM CHLORIDE 0.9% 10ML SYR (RAD ONLY) 10 ML IV (08:54)
[2025-07-15] MEDS: IOPAMIDOL-370 (76%);100ML BOTTLE 80 ML IV (08:54)
[2025-07-15] MEDS: 0.9 % SODIUM CHLORIDE 50 ML VIAL IV (08:54)
[2025-07-15 09:02] LABS: Bacteria,Urine Trace /lpf; Squamous Epithelial Cell,Urine Occasional #/hpf (0-5); WBC,Urine Occasional #/hpf (0-3)
[2025-07-15 09:04] LABS: Hemoglobin 18.4 g/dL (14.1-18.0)
[2025-07-15 09:15] LABS: Alanine Aminotransferase 44 U/L (12-78); Albumin Level 5.0 g/dl (3.5-5.0); Albumin/Globulin Ratio 1.3 (1.1-1.8); Alkaline Phosphatase 98 U/L (38-126); Anion Gap 15.4 mEq/L (5-15); Aspartate Amino Transferase 38 U/L (17-59); Bilirubin,Total 0.8 mg/dl (0.2-1.3); Blood Urea Nitrogen 17 mg/dl (9-20); Calcium 10.8 mg/dl (8.4-10.2); Carbon Dioxide 32 mmol/L (22.0-30.0); Chloride 100 mmol/L (98-107); Creatinine Clearance Estimated 118 mL/min (50-200); Creatinine,Serum 1.30 mg/dl (0.66-1.25); Estimated Glomerular Filt Rate 59 ml/min (>60); GFR (African American) 72 ML/MIN (>60); Globulin 3.9 g/dL (1.3-3.2); Glucose 114 mg/dl (74-100); Potassium 4.4 mmoL/L (3.5-5.1); Sodium 143 mmol/L (136-145); Total Protein,Serum 8.9 g/dl (6.3-8.2)
[2025-07-15] MEDS: OXYCODONE 5MG IMMEDIATE RELEASE TABLET 5 MG PO (09:38)
[2025-07-15 09:41] LABS: Lipase 274 U/L (23-300)
[2025-07-15 10:03] LABS: Troponin I < 0.01 ng/ml (0.00-0.034)
--- NOTE | 2025-07-15 10:58 | PC.NURSE ---
Updated pt and visitor at this time. No needs stated. Note by FannieRN
--- NOTE | 2025-07-15 11:25 | PC.NURSE ---
Spoke with 's office for pt's to be seen in the office. Pt scheduled for an appointment for 07/15/25 at 14:30. MD and pt notified at this time.
[2025-07-15] MEDS: LACTATED RINGERS 1000ML 500 ML 999 ML IV (11:32)
[2025-07-15 12:59] LABS: Hepatitis C Ab Qual. W/ RFX NEGATIVE (Negative)
== END 2025-07-15 12:20 | disposition home or self-care (01) ==
PROVIDERS: Emergency Provider Emergency Medicine; PCP Internal Medicine
DX: N13.0 Hydronephrosis with ureteropelvic junction obstruction (principal); R10.9 Unspecified abdominal pain; R07.89 Other chest pain; M54.2 Cervicalgia; V89.2XXA Person injured in unspecified motor-vehicle accident, traffic, initial encounter
CPT/HCPCS: 70450; 71275; 72125; 74174; 80053; 81001; 83690; 84484; 85025; 86803; 87389; 96374; 96375; 99285; J2270; J2405; J7120; Q9967

== ENCOUNTER → 2025-07-17 20:38 | Outpatient (CLI) | payer BC, SELFPAY ==
--- OUTSIDE RECORDS SUMMARY | 2025-07-17 20:42 | XMS_ITS | Data Portability ---
Author Organization [facility] [place] CHANA Danielson TALLULAH CLOSED Address [address] [facility] [address] [place] [address] Assessment No assessment recorded. Plan of Treatment [...] By Organization Details Last Modified Time 08/23/2018 [id number] kidney stone: care instructions [email or web address] Not available 08/31/2018 15:28:57 Reason for Referral None Reported. 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 IMAGES PROVIDED: KUB AP radiographic images of the abdomen. COMPARISON: None. FINDINGS AND IMPRESSION: There is a 4 mm diameter calcification in the region of the right mid ureter between the right L4 and L5 transverse processes. Calcified phleboliths are seen in the pelvis. No other significant abnormality. Interpreted By: Lucho Wong MD HANCOCK MD [address] [place] [address], [id number], [facility] 08/28/2018 17:17:38 Problems No Known Problems Medical Equipment None [...] Updated DateTime 08/23/2018 177.8 cm 35.9 kg/m2 626819.09 g Saniya Martell [facility] 08/23/2018 14:46:54 Social History Question Answer Notes LastModified by Organizat ion Details LastModified Time Tobacco Smoking Status Former Smoker Saniya Martell null, [facility] 08/23/2018 14:48:57 Marital Status Single Informatio n not available 08/23/2018 What Was The Date Of Your Most Recent Tobacco Screening? 08/23/2018 [id number] Information n ot available 09/23/2019 Sex: Unknown [...] available 2018 14:48:50 Medical History Condition Response Anxiety Disorder Y Kidney Stones Y Depression Y Past Encounters Encounter ID Performer Location Encounter Start Date Encounter Closed Date Diagnosis/Indication Diagnosis SNOMED-CT Code Diagnosis ICD10 Code Diagnosis IMO Codes Diagnosis Note [id number] LUIS HANCOCK MD [facility] [address] [place] [address] 08/23/2018 14:10:33 09/01/2018 14:29:20 Ureteric stone 90357142 N20.1 kUB shows stone in mid R [...] ID Guarantor Name 06/30/2020 1 [employer] (POS) [id number] Skyler Nashvikighulam [id number] Skyler Soto Keyur 06/30/2020 1 [facility] 8digits [facility] (PPO) [id number] Skyler Nashvikighulam [id number] Skyler Brittany Keyur Notes Date Note Type Note Provider Name and Address Organization Details Recorded Time 08/23/2018 text/html 38 y/o male here today with c/o a kidney stone. He states he went to [facility] with c/o gross hematuria, vomiting, and R flank pain. He states he had a CT scan which showed a 6mm stone in his R ureter. He does have a prior h/o kidney stones. He has not yet passed the stone. He denies fever/chills. LUIS HANCOCK MD [address] [place] [address], [phone], [facility] 08/31/2018 15:30:18
--- OUTSIDE RECORDS SUMMARY | 2025-07-17 20:42 | XMS_ITS | Clinical Summary ---
[facility] Address [address] [place] [address] Care Team Providers Care Telephoto Engineer Name Role Phone Edis Grajeda MD Primary Care Provider [phone] Allergies No known active allergies Medications tamsulosin (FLOMAX) 0.4 MG capsule 24 hr capsule Take 1 capsule by mouth Daily. Active venlafaxine (EFFEXOR) 75 MG tablet Take 75 mg by mouth Daily. Active buprenorphine-n aloxone (SUBOXONE) 8-2 MG per SL tablet Place 1 tablet under the tongue Daily. 6 MG Active Active Problems Problem Noted Date Diagnosed Date Right ureteral stone 05/18/2017 Social History Tobacco Use Types Packs/Day Years Used Date Smoking Tobacco: Former Cigarettes Q uit: 2006 Smokeless Tobacco: Never Comments:Quit 10 years ago Alcohol Use Standard Drinks/Week Comments No 0 (1 standard drink = 0.6 oz pur e alcohol) Abuse Screen Answer Date Recorded Unsafe at Home or Work/School Not on file Feels Threatened by Someone? Not on file 06/2023 Does Anyone Keep You from Co ntacting Others or Doint Things Outside the Home? Not on file 05/16/2023 Physical Sign of Abuse Present Not on file 1 Housing Stability Answer Date Recorded Current Living Arrangements Not on file 05/06 Potentially Unsafe Housing Conditions Not on dio e 05/16/2023 Family and Community Support Answer Rodríguez e Recorded Help with Day-to-Day Activities Not on file 05/16/2023 Lonely or Isolated Not on file 05/16/2023 Employment Answer Date Recorded Do you want help finding or keeping work or a lynda b? Not on file 05/16/2023 Disabilities Answer Date Recorded Concentrating, Remembering, or Making Decisions Difficulty Not on file 05/16/2023 Doing Errands Independently Difficulty Not on fi le 05/16/2023 Education Answer Date Recorded Help with school or training? Not on file Preferred Language Not on file 05/16/2023 Sex and Gender Information Value Date Recorded Sex Assigned at Not on file Legal Sex Male 1:11 PM EDT Gender Identity Not on file Sexual Orientation Not on file Last Filed Vital Signs Vital Sign Reading Time Taken Comments Blood Pressure 142/89 05/18/2017 6:43 PM EDT Pulse 75 05/18/2017 6:43 PM EDT Temperature 36.7 C (98 F) 05/18/2017 4:33 PM EDT Respiratory Rate 16 05/18/2017 6:43 PM EDT Oxygen Saturation 97% 05/18/2017 6:43 PM EDT Inhaled Oxygen Concentration - - Weight 111 kg (245 lb) 05/17/2017 3:34 PM EDT Height 177.8 cm (5' 10 ) 05/17/2017 3:34 PM EDT Body Mass Index 35.15 05/17/2017 3:34 PM EDT Plan of Treatment Health Maintenance Due Date Last Done Comments ANNUAL PHYSICAL 1980 HEPATITIS C SCREENING 1980 TDAP/TD VACCINES (1 - Tdap) 1998 COLOGUARD 2024 COLON CANCER SCREENING 5 YEA R SIGMOIDOSCOPY 2024 COLONOSCOPY 2024 [address]AL CANCER SCREENING 2024 CT COLONOGRAPHY 2024 FECAL OCCULT BLOOD TEST 2024 FIT Testing (1 year) 2024 INFLUENZA VACCINE 03/06/2025 Pneumococcal Vaccine 0-49 Aged Out No longer eligible based on patient's age to complete this topic Medical Devices Implanted Type Area Brick Handler Device Identifier Shelf Expiration Date Model / Serial / Lot Stent Uretrl Contour Percuflx No Gw 6f 26cm - [id number] Implanted:Qty : 1 on 05/18/2017 by Quirino Soria MD at [facility] Implant Right: Ureter [employer] [id number] Insurance [facility] [employer] Care Teams Telephoto Engineer Relationship Specialty Start Date End Date Edis Grajeda MD [address] [facility] [address] [place] [id number] PCP - General Internal Medicine 05/18/17
== END ==
PROVIDERS: PCP Internal Medicine; Visit Provider Internal Medicine
DX: G47.33 Obstructive sleep apnea (adult) (pediatric) (principal); G47.37 Central sleep apnea in conditions classified elsewhere; G47.36 Sleep related hypoventilation in conditions classified elsewhere; E66.01 Morbid (severe) obesity due to excess calories
CPT/HCPCS: 95810

== ENCOUNTER 2025-07-18 06:14 | Emergency (ER) | payer BC, SELFPAY ==
--- OUTSIDE RECORDS SUMMARY | 2025-07-18 06:19 | XMS_ITS ---
Author Organization Unknown ENCOUNTERS Encounter Performer Location Date Diagnosis Diagnosis Status Pre Admit [address] [place] [place] [address] [id number] Emergency [address] [place] [id number] Emergency [place] [place] [address] [id number] ERIK Pre Admit [address] [place] [address] [id number] Emergency [place] [address] [place] [address] [id number] ERIK *Note: Encounters from your own facility or health system may be excluded. Allergies, Adverse Reactions, Alerts Allergen Type Severity Identification Date Medications Name Date Quantity Days Supplied [facility] Number
--- OUTSIDE RECORDS SUMMARY | 2025-07-18 06:19 | XMS_ITS | Clinical Summary ---
[facility] Address [address] [place] [address] Care Team Providers Care Cardiology Clinical Consultant Name Role Phone Edis Grajeda MD Primary Care Provider [phone] Allergies No known active allergies Medications tamsulosin [...] this topic Medical Devices Implanted Type Area Environmental Science Instructor Device Identifier Shelf Expiration Date Model / Serial / Lot Stent Uretrl Contour Percuflx No Gw 6f 26cm - [id number] Implanted:Qty : 1 on 05/18/2017 by Quirino Soria MD at [facility] Implant Right: Ureter Desall [id number] Insurance [facility] [employer] Care Teams Cardiology Clinical Consultant Relationship Specialty Start Date End Date Edis Grajeda MD [address] [facility] [address] [place] [address] PCP - General Internal Medicine 05/18/17
[2025-07-18 06:20] VITALS: BP 203/159; PULSE 118; RESP 24; TEMP 36.8; O2SAT 99; BMI 35.9
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
[2025-07-18 06:36] LABS: Hematocrit 54.2 % (42.0-52.0); Hemoglobin 17.5 g/dL (14.1-18.0); Immature Granulocytes % 0.3 %; Mean Corpuscular HGB Conc 32.3 g/dL (31.8-35.4); Mean Corpuscular Hemoglobin 26.9 pg (27.0-31.2); Mean Corpuscular Volume 83.4 fl (80-94); Nucleated Red Blood Cells % 0 %; Platelet Count 211 K/mm3 (142-424); Red Blood Count 6.50 M/mm3 (4.60-6.20); Red Cell Distribution Width-SD 42.5 fL; White Blood Count 9.0 K/mm3 (4.8-10.8)
[2025-07-18] MEDS: KETOROLAC 30MG/ML VIAL 30 MG IV (06:41)
[2025-07-18] MEDS: MORPHINE 4MG/ML SYRINGE 4 MG IV (06:41)
[2025-07-18] MEDS: LACTATED RINGERS 1000ML 1,000 ML 999 ML IV (06:42)
[2025-07-18 06:48] VITALS: BP 155/117; PULSE 111; O2SAT 96
[2025-07-18] MEDS: ONDANSETRON 4MG/2ML VIAL 4 MG IV (06:48)
[2025-07-18 07:00] VITALS: BP 138/92; PULSE 98; O2SAT 97
[2025-07-18 07:02] LABS: Microscopic, Urine URINE MICROSCOPIC (MICROSCOPIC)
[2025-07-18 07:03] LABS: Chloride 100 mmol/L (98-107)
[2025-07-18 07:04] LABS: Albumin Level 5.1 g/dl (3.5-5.0); Potassium 3.8 mmoL/L (3.5-5.1); Sodium 145 mmol/L (136-145)
[2025-07-18 07:06] LABS: Alanine Aminotransferase 34 U/L (12-78); Anion Gap 16.8 mEq/L (5-15); Aspartate Amino Transferase 36 U/L (17-59); Blood Urea Nitrogen 20 mg/dl (9-20); Carbon Dioxide 32 mmol/L (22.0-30.0); Creatinine Clearance Estimated 93 mL/min (50-200); Creatinine,Serum 1.60 mg/dl (0.66-1.25); Estimated Glomerular Filt Rate 47 ml/min (>60); GFR (African American) 57 ML/MIN (>60)
[2025-07-18 07:07] LABS: Albumin/Globulin Ratio 1.4 (1.1-1.8); Alkaline Phosphatase 100 U/L (38-126); Bilirubin,Total 1.0 mg/dl (0.2-1.3); Calcium 9.6 mg/dl (8.4-10.2); Globulin 3.6 g/dL (1.3-3.2); Glucose 108 mg/dl (74-100); Total Protein,Serum 8.7 g/dl (6.3-8.2)
[2025-07-18 07:22] LABS: Glucose,Urine (UA) Negative (Negative); Ketones,Urine TRACE (Negative); Leukocyte Esterase,Urine Negative (Negative); PH,Urine 6.0 (5.0-8.5); Protein,Urine 2+ (Negative); Specific Gravity, Urine >= 1.030 (1.005-1.030); Urobilinogen,Urine 1.0 EU/dl (0.2)
[2025-07-18 07:30] VITALS: BP 129/81; PULSE 90; O2SAT 97
[2025-07-18 08:00] VITALS: BP 137/82; PULSE 80; RESP 18; O2SAT 92
[2025-07-18 08:03] LABS: Bilirubin,Urine Negative (Negative); Color,Urine Dark Yellow (Yellow)
[2025-07-18 08:04] LABS: Bacteria,Urine Trace /lpf; Squamous Epithelial Cell,Urine Occasional #/hpf (0-5); WBC,Urine Occasional #/hpf (0-3)
[2025-07-18 08:38] VITALS: BP 129/91; PULSE 80; RESP 18; TEMP 36.9; O2SAT 97
[2025-07-18 10:34] LABS: Reflex Lactic Add Lactic Reflex
== END 2025-07-18 08:46 | disposition home or self-care (01) ==
PROVIDERS: Emergency Provider Emergency Medicine; PCP Internal Medicine
DX: N13.2 Hydronephrosis with renal and ureteral calculous obstruction (principal); N28.9 Disorder of kidney and ureter, unspecified; E86.0 Dehydration
CPT/HCPCS: 80053; 81001; 83605; 85025; 96361; 96374; 96375; 99285; J1885; J2270; J2405; J7120